=== PATIENT | male | born 1940 | race Caucasian/White ===

== ENCOUNTER 2018-07-18 14:06 | Emergency (ER) | payer MEDICARE, OTHER ==
--- NOTE | 2018-07-18 16:14 | ULT ---
RIGHT LOWER EXTREMITY VENOUS DOPPLER 07/18/18 HISTORY: Lower extremity edema. COMPARISON: None. TECHNIQUE: Real time tijerina scale, color doppler and spectral analysis right lower extremity venous system was per formed. The common femoral, femoral, proximal portions of the greater saphenous and deep femoral vein s as well as the popliteal and posterior tibial veins were interrogated. There is normal flow, augmentation and compression. IMPRESSION: No deep venous thrombosis. POS: [facility]
== END 2018-07-18 17:05 | disposition home or self-care (01) ==
LOC: ERS 14:06
DX: M79.89 Other specified soft tissue disorders (principal); E78.5 Hyperlipidemia, unspecified; I10 Essential (primary) hypertension; Z79.82 Long term (current) use of aspirin; Z79.899 Other long term (current) drug therapy

== ENCOUNTER 2018-09-08 08:16 | Outpatient (CLI) | payer MEDICARE, OTHER ==
--- NOTE | 2018-09-08 10:38 | MRI ---
MRI RIGHT KNEE WITHOUT CONTRAST: Date: 09/08/18 HISTORY: Knee pain and swelling, M25.461. COMPARISON: None. FINDINGS: Medial Meniscus: There is horizontal type tear of the body and posterior horn medial meniscus extending from the under surface. This extends to the posterior horn 5.0 mm from the footprint insertion. Moderate degenerativ e signal in the posterior horn. There is some loss of normal hoop stress with 2.0 mm gutter extrusion . Lateral Meniscus: There is a free edge radial tear at the lateral meniscal body, which does not extend to the middle or peripheral third of the meniscus. The ACL, PCL, MCL, and LCLC are intact. Extensor Mechanism: The quadriceps tendon, patella, and patellar tendon are intact. Cartilage: Patellofemoral compartment: Intact. 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 Lateral compartment: Intact. Bones: There is extensive edema throughout the medial and lateral tibial plateaus with a subcortical insuffi ciency fracture of the medial tibial plateau. The fracture does not extend to the articular surface a nd there is no articular surface depression. Soft Tissues: There is mild pretibial and prepatellar soft tissue swelling. Mild joint effusion. Muscles: There is edema within the popliteus muscle, as well as the soleus. IMPRESSION: Undersurface flap and horizontal tears of the body and posterior horn of medial meniscus with some lo os of hoop stress. There is subsequent subcortical insufficiency fracture of the medial tibial platea u without articular surface depression or extension, with extensive edema throughout the medial and l ateral tibial plateaus. POS: [facility]
== END 2018-09-08 08:17 | disposition home or self-care (01) ==
LOC: TBSIIMAG 08:16
PROVIDERS: ATTEND Family Medicine
DX: M25.461 Effusion, right knee (principal); S83.241A Other tear of medial meniscus, current injury, right knee, initial encounter; S82.141D Displaced bicondylar fracture of right tibia, subsequent encounter for closed fracture with routine healing; R60.0 Localized edema

== ENCOUNTER 2019-10-06 06:21 | Outpatient (CLI) | payer MEDICARE, OTHER ==
[2019-10-06 14:16] LABS: #Basophils 0.1 thou/uL (0.0-0.2); #Eosinphils 0.3 thou/uL (0.0-0.7); #Lymphocytes 2.4 thou/uL (1.20-3.40); #Monocytes 0.5 thou/uL (0.11-0.59); #Neutrophils 5.2 thou/uL (1.40-6.50); %Basophils 0.9 % (0.0-1.0); %Lymphocytes 28.7 % (21.0-51.0); %Monocytes 6.4 % (0.0-10.0); %Neutrophils 61.1 % (42.0-75.0); Hemoglobin 15.1 g/dL (14.0-18.0); Mean Corpuscular HGB CONC 32.8 g/dL (32.0-36.0); Mean Corpuscular Hemoglobin 31.3 pg (27.0-31.0); Mean Corpuscular Volume 95.2 fL (78.0-98.0); Platelet Count 256 thou/uL (130-400); RBC Distribution Width 11.4 % (11.5-14.5); Red Blood Cell (RBC) Count 4.83 mill/uL (4.70-6.10); White Blood Cell (WBC) Count 8.5 thou/uL (4.8-10.8)
[2019-10-06 14:21] LABS: Prothrombin Time 13.3 SEC (12.0-14.7)
== END 2019-10-06 06:22 | disposition home or self-care (01) ==
LOC: LABBT 06:21
PROVIDERS: ATTEND Orthopaedic Surgery
DX: Z01.818 Encounter for other preprocedural examination (principal); G56.01 Carpal tunnel syndrome, right upper limb
CPT/HCPCS: 85025; 85610; 93005; 93010

== ENCOUNTER 2019-10-08 07:22 | Day surgery (SDC) | payer MEDICARE, OTHER ==
[2019-10-06 13:12] VITALS: BMI 29.6
[2019-10-08] MEDS ORDERED: Lidocaine 1% w/Epinephrine 1:100K 20 ML VIAL ONE (10:19)
[2019-10-08] MEDS ORDERED: Lidocaine 1% PF 5 ML VIAL ONE (14:51)
[2019-10-08] MEDS ORDERED: ePHEDrine/0.9% NaCl/PF SYRINGE 50 mg/10 ml ONE (14:51)
[2019-10-08] MEDS ORDERED: Ondansetron PF 4 MG/2 ML Vial ONE (14:51)
[2019-10-08] MEDS ORDERED: PROPOFOL 200 MG/20 ML VIAL ONE (14:51)
[2019-10-08] MEDS ORDERED: Dexamethasone 20 MG/5 ML VIAL ONE (14:51)
--- NOTE | 2019-10-09 12:21 | OP ---
DATE OF PROCEDURE: 10/08/2019 PREOPERATIVE DIAGNOSIS: Right carpal tunnel syndrome. ANESTHESIOLOGIST: [place]. POSTOPERATIVE DIAGNOSIS: Right carpal tunnel syndrome. PROCEDURE PERFORMED: Right open carpal tunnel release. ANESTHESIA: patient received an LMA, 9 mL of lidocaine, 1% with epinephrine. ESTIMATED BLOOD LOSS: Less than 10 mL. TOURNIQUET TIME: 3 minutes. ANTIBIOTICS: Ancef 2 g. COMPLICATIONS: None. HISTORY OF PRESENT ILLNESS: Mr. Orozco is an 79-year-old male with right hand pain, numbness, tingling, night pain for a year with symptoms who comes in for right carpal tunnel release. I discussed with the patient risks and benefits of surgery to include pain, scar, bleeding, infection, damage to vital structures, decreased range of motion and strength, need for further surgeries, failure of procedure, continued pain despite surgical intervention. The patient understood the risks and benefits and elected to proceed. DESCRIPTION OF PROCEDURE: Time-out was performed designating the patient's right upper extremity as the operative site based on site, consents, and marking. After time-out, the patient's right upper extremity was prepped and draped in sterile fashion. Tourniquet was brought up and left for a total of 3 minutes. Incision of the fourth ray, proximal to Talley cardinal line down through skin down through the palmar fascia. I placed a hemostat to protect across transverse carpal ligament as well as the palmaris brevis. I transected this, protecting the nerve. I then made sure it was released proximally and get a fingerbreadths in volar wrist tourniquet let down3 minutes, controlled bleeding, closed the skin with 3-0 nylon. I had injected about 3 mL of injection before the procedure and 6 afterwards in the incision. I placed a soft tissue dressing. The patient will be placed in a Velcro wrist splint in 2 to 3 days, keep the wound covered, to follow up with me in 10 to 12 days for suture removal. Job ID: [id number] [facility]
== END 2019-10-08 13:45 | disposition home or self-care (01) ==
LOC: SDC 07:22
PROVIDERS: ATTEND Orthopaedic Surgery
PROC: 01N50ZZ Release Median Nerve, Open Approach (ICD-10-PCS; principal; 2019-10-08)
DX: G56.01 Carpal tunnel syndrome, right upper limb (principal); E78.5 Hyperlipidemia, unspecified; I10 Essential (primary) hypertension; Z79.82 Long term (current) use of aspirin; Z79.899 Other long term (current) drug therapy
CPT/HCPCS: J0690; J1100; J2001; J2405; J2704